=== PATIENT | female | born 1975 | race American Indian/Alaskan Native ===

== ENCOUNTER → 2018-12-11 | Outpatient (CLI) | payer OTHER | LOC: BMCIMAGING 09:22 | PROVIDERS: ATTEND Podiatrist Foot & Ankle Surgery | DX: S82.891A Other fracture of right lower leg, initial encounter for closed fracture (principal) ==

== ENCOUNTER → 2018-12-21 | Outpatient (CLI) | payer OTHER | LOC: BMCIMAGING 15:22 | PROVIDERS: ATTEND Podiatrist Foot & Ankle Surgery | DX: S82.891A Other fracture of right lower leg, initial encounter for closed fracture (principal) ==

== ENCOUNTER → 2019-01-15 | Outpatient (CLI) | payer OTHER | LOC: BMCIMAGING 09:41 | PROVIDERS: ATTEND Podiatrist Foot & Ankle Surgery | DX: S82.891A Other fracture of right lower leg, initial encounter for closed fracture (principal) ==

== ENCOUNTER → 2019-02-19 | Outpatient (CLI) | payer OTHER | LOC: BMCIMAGING 09:30 | PROVIDERS: ATTEND Podiatrist Foot & Ankle Surgery | DX: S82.891D Other fracture of right lower leg, subsequent encounter for closed fracture with routine healing (principal) ==